=== PATIENT | male | born 1990 | race Caucasian/White ===

== ENCOUNTER 2016-06-08 13:16 | Emergency (ER) | payer MEDICAID ==
[~2016-06-08 13:16] MED LIST: BACTRIM DS PO; DICYCLOMINE HCL20 MG PO; FLAGYL PO; IBUPROFEN PO; NO MEDICATIONS; ROBAXIN 750750 M1 PO; ZOFRAN ODT4 MG PO
== END 2016-06-08 13:51 | disposition home or self-care (01) ==
LOC: SED 13:16
DX: K52.9 Noninfective gastroenteritis and colitis, unspecified (principal); Z88.0 Allergy status to penicillin
CPT/HCPCS: 99282